=== PATIENT | female | born 2000 | race Caucasian/White ===

== ENCOUNTER 2019-05-08 04:04 | Emergency (ER) | payer MEDICAID ==
[~2019-05-08] VITALS: Ht 160 cm; Wt 54.4 kg
[2019-05-08 04:04] VITALS: BP 113/74
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
--- NOTE | 2019-05-08 04:35 | NUR ---
Dr. Thornton examining pt.
[2019-05-08 04:40] VITALS: BP 105/82
--- NOTE | 2019-05-08 04:40 | NUR ---
Patient discharged with v/s stable. Written and verbal after care instructions given and explained by Dr. Thornton. Patient verbalized understanding. Ambulatory with [facility] in custody. All questions addressed prior to discharge by Dr. Thornton. Advised to follow up with PMD.
== END 2019-05-08 04:40 ==
LOC: MED 04:04
DX: Z04.1 Encounter for examination and observation following transport accident (principal); Z02.89 Encounter for other administrative examinations; V89.2XXA Person injured in unspecified motor-vehicle accident, traffic, initial encounter; Y93.89 Activity, other specified; Y92.89 Other specified places as the place of occurrence of the external cause; Y99.8 Other external cause status
CPT/HCPCS: 99283